=== PATIENT | male | born 1995 | race Caucasian/White ===

== ENCOUNTER 2019-06-06 20:56 | Emergency (ER) | payer BC ==
[2019-06-06] MEDS ORDERED: HYDROmorphone 1 MG/ML Syringe IM ONE (21:39)
--- NOTE | 2019-06-06 22:12 | EDM.PDOC ---
ED HPI GENERAL MEDICAL PROBLEM - General Chief Complaint: Upper Extremity Injury/Pain Stated Complaint: LEFT SHOULDER POSSIBLY DISLOCATED FELL Time Seen by Provider: 06/06/19 21:33 Source of Information: Reports: Patient, RN Notes Reviewed History Limitations: Reports: No Limitations - History of Present Illness INITIAL COMMENTS - FREE TEXT/NARRATIVE: Patient is a 23-year-old male who presents to the ED for the evaluation of a left shoulder injury. Patient states he was working on a trailer, 1 hour prior to arrival to the ER, when he fell through the floor of the trailer. He states that he tried to brace himself against the wall with his left arm, but ended up injuring his left shoulder. He has had very limited range of movement after this, and states there is a lot of pain with any sort of movement of his shoulder. He is able to move his elbow, and wiggle his fingers without much difficulty. He is not having any numbness or tingling at this time. Pulses are strong distally to the injury. He did not hit his head nor is he complaining of any other injuries. Patient states that he did eat supper tonight, roughly around 8:30PM. There is no obvious deformity appreciated on exam, however patient's body habitus makes it hard to appreciate. Left Shoulder Pain Score (Numeric/FACES): 10 - Related Data Allergies Allergy/AdvReac Type Severity Reaction Status Date / Time cephalexin [From Keflex] Allergy Rash Verified 06/06/19 21:12 Home Meds: Home Meds . [No Known Home Meds] 06/06/19 [History] Past Medical History - Past Health History Medical/Surgical History: Denies Medical/Surgical History Social & Family History - Tobacco Use Smoking Status *Q: Current Every Day Smoker Years of Tobacco use: 4 Packs/Tins Daily: 0.5 - Caffeine Use Caffeine Use: Reports: None - Recreational Drug Use Recreational Drug Use: No Review of Systems - Review of Systems Review Of Systems: Comprehensive ROS is negative, except as noted in HPI. ED EXAM, GENERAL - Physical Exam Exam: See Below Exam Limited By: No Limitations General Appearance: Alert, WD/WN, No Apparent Distress Eye Exam: Bilateral Eye: EOMI, Normal Inspection, PERRL Ears: Normal External Exam, Normal Canal, Hearing Grossly Normal, Normal TMs Nose: Normal Inspection Throat/Mouth: Normal Inspection, Normal Lips, Normal Teeth, Normal Gums, Normal Oropharynx, Normal Voice, No Airway Compromise Head: Atraumatic, Normocephalic Neck: Normal Inspection Respiratory/Chest: No Respiratory Distress, Lungs Clear, Normal Breath Sounds, No Accessory Muscle Use, Chest Non-Tender Cardiovascular: Normal Peripheral Pulses, Regular Rate, Rhythm, No Murmur Peripheral Pulses: 3+: Radial (L), Radial (R) GI/Abdominal: Normal Bowel Sounds, Soft, Non-Tender, No Distention, No Mass Extremities: Normal Inspection, Normal Capillary Refill, Limited Range of Motion (Of the left shoulder, patient states he is not able to move this much at all. He is having quite a bit of pain on examination and is not able to move the arm much at all, he is very hesitant to let me move the arm much at all. He is able to move his fingers in all range of motion, and is able to move at his elbow.) Neurological: Alert, Oriented, Normal Cognition, No Motor/Sensory Deficits Psychiatric: Normal Affect, Normal Mood Skin Exam: Warm, Dry, Intact, Normal Color, No Rash ED TRAUMA EXTREMITY PROCEDURES - Joint Reduction Left Shoulder Sedation: Conscious Sedation, Other (intubation) Pre-Procedure NV Status: Normal Post-Procedure NV Status: Normal Technique: Traction/Counter Traction Post-Reduction Imaging: Completely Reduced Joint Reduction Complications: No Joint Reduction Complication Description: Patient did eat prior to arrival to the ER, at 8:30 PM. BUS MECHANIC on-call is intubating the patient for airway protection at this time, patient will have conscious sedation otherwise for shoulder reduction purposes. Course - Vital Signs Last Recorded V/S: Last Vital Signs Temp 98 F 06/06/19 21:09 Pulse 90 06/06/19 21:09 Resp 16 06/06/19 21:09 BP 174/100 H 06/06/19 21:09 Pulse Ox 97 06/06/19 21:09 - Orders/Labs/Meds Orders: Active Orders 24 hr Category Date Time Status Peripheral IV Care [RC] . DIRECTED Care 06/06/19 22:53 Ordered Shoulder Comp Lt [CR] Stat Exams 06/06/19 21:33 Ordered Shoulder Comp Lt [CR] Stat Exams 06/06/19 23:45 Ordered Sodium Chloride 0.9% [Saline Flush] Med 06/06/19 22:53 Active 10 ml FLUSH ASDIRECTED PRN DME for Discharge [COMM] Routine Oth 06/06/19 23:05 Ordered Peripheral IV Insertion Adult [OM.PC] Stat Oth 06/06/19 22:53 Ordered Medication Orders Sodium Chloride (Saline Flush) 10 ml FLUSH ASDIRECTED PRN PRN Reason: Keep Vein Open Last Admin: 06/06/19 23:22 Dose: 10 ml Meds: Medications Generic Name Dose Route Start Last Admin Trade Name Freq PRN Reason Stop Dose Admin Sodium Chloride 10 ml 06/06/19 22:53 06/06/19 23:22 Saline Flush FLUSH 10 ml ASDIRECTED PRN Administration Keep Vein Open Discontinued Medications Generic Name Dose Route Start Last Admin Trade Name Freq PRN Reason Stop Dose Admin Fentanyl Confirm 06/06/19 23:05 Sublimaze Administered 06/06/19 23:06 Dose 100 mcg .ROUTE .STK-MED ONE Hydromorphone HCl 1 mg 06/06/19 21:39 06/06/19 21:45 Dilaudid IM 06/06/19 21:40 1 mg ONETIME ONE Administration Hydromorphone HCl 5 mg 06/06/19 22:52 06/06/19 23:22 Dilaudid IVPUSH 06/06/19 22:53 Not Given ONETIME ONE Lidocaine HCl Confirm 06/06/19 23:06 Xylocaine-Mpf 1% Administered 06/06/19 23:07 Dose 4 mls @ as directed .ROUTE .STK-MED ONE Lactated Ringer's Confirm 06/06/19 23:08 Ringers, Lactated Administered 06/06/19 23:09 Dose 1,000 mls @ as directed .ROUTE .STK-MED ONE Midazolam HCl 5 mg 06/06/19 22:51 06/06/19 23:22 Versed 1 Mg/Ml IVPUSH 06/06/19 22:52 Not Given ONETIME ONE Midazolam HCl Confirm 06/06/19 22:56 06/06/19 23:22 Versed 1 Mg/Ml Administered 06/06/19 22:57 Not Given Dose 6 mg .ROUTE .STK-MED ONE Midazolam HCl Confirm 06/06/19 23:05 Versed 1 Mg/Ml Administered 06/06/19 23:06 Dose 2 mg .ROUTE .STK-MED ONE Midazolam HCl Confirm 06/06/19 23:25 Versed 1 Mg/Ml Administered 06/06/19 23:26 Dose 2 mg .ROUTE .STK-MED ONE Propofol Confirm 06/06/19 23:05 Diprivan 20 Ml Administered 06/06/19 23:06 Dose 200 mg .ROUTE .STK-MED ONE Propofol Confirm 06/06/19 23:06 Diprivan 20 Ml Administered 06/06/19 23:07 Dose 200 mg .ROUTE .STK-MED ONE Propofol Confirm 06/06/19 23:28 Diprivan 20 Ml Administered 06/06/19 23:29 Dose 200 mg .ROUTE .STK-MED ONE - Re-Assessments/Exams Free Text/Narrative Re-Assessment/Exam: 06/06/19 22:10 Patient presents to the ED for evaluation of a left shoulder injury. Did get x- rays at time of triage, the patient did receive 1 mg of IM Dilaudid for further pain management as he states it was pretty painful when he got to the ER. The shoulder x-ray demonstrates an anterior dislocation, confirmed by myself and Dr. Rudolph. Official radiology read is pending however. At this time we will have BUS MECHANIC come in for conscious sedation, and try to put the patient's shoulder back in. We do not have Ortho coverage on at today's visit. Dr. Rudolph will help assist with the shoulder reduction. 06/06/19 22:45 Silvio Ramirez CRNA was into consult with the patient, and he is recommending waiting until at least 2:30 AM to put the shoulder back in place due to the patient eating at 8:30 PM. He says ideally he would like to try to wait till 4: 30 AM. I did discuss this with Dr. Rudolph at this time, and he states that we should go forward with the shoulder reduction at this time is is an emergent situation and not an elective surgery. 06/06/19 23:08 Silvio Ramirez CRNA will assist with the reduction but recommends intubating the patient for protecting the patient's airway. This was discussed with the patient and he is okay with this line of treatment at this time. Plan is to get the shoulder reduced, send the patient home with a few tablets of pain medication, and have him follow-up with Ortho in a week or so for reevaluation and to make sure he does not need any sort of shoulder instability surgery. 06/06/19 23:41 Shoulder reduction was successful, performed by myself with Dr. Rudolph on countertraction. Postreduction films do appear to show a joint that is properly in place. No obvious fracture or Hill-Sachs deformity noted on postreduction films by Dr. Rudolph or myself. Official radiology read is pending. Patient will be discharged home after he wakes up from the conscious sedation procedure, with the above plan. Departure - Departure Time of Disposition: 23:11 Disposition: Home, Self-Care 01 Condition: Fair Clinical Impression: Dislocation of left shoulder joint Qualifiers: Encounter type: initial encounter Qualified Code(s): S43.005A - Unspecified dislocation of left shoulder joint, initial encounter - Discharge Information *PRESCRIPTION DRUG MONITORING PROGRAM REVIEWED*: No *COPY OF PRESCRIPTION DRUG MONITORING REPORT IN PATIENT KAROL: No Instructions: How to Use a Shoulder Immobilizer, Shoulder Dislocation, Easy-to- Read Referrals: Truman Marquis MD [Physician] - 1 Week Forms: ED Department Discharge, ED Return to Work/School Form Additional Instructions: You have been evaluated in the ED for your left shoulder injury. Your x-ray demonstrated that you did have an anterior dislocation of your left shoulder, this was successfully reduced in the ED tonight. Please use ice as tolerated to the affected area. You were given a sling, for immobilization of the joint, please keep this in place for the next day or so, you may want to try to do some light range of motion shoulder exercises to help prevent frozen shoulder due to immobilization of the shoulder joint during this time. You may take Tylenol 500 mg or ibuprofen 600mg q6 hrs for pain relief. Please do so until you have a tolerable level of pain with activity. Do not exceed 4000mg Tylenol or 3200mg ibuprofen in a 24 hour time period. You were given a prescription for a strong pain medication, hydrocodone/ acetaminophen 5/325, please take 1 tab every 6 hours as needed for pain not relieved by Tylenol or ibuprofen alone. Please note this medication does contain Tylenol in it, so do not take more than 4000 mg in a 24-hour time span. These medications can be addictive, so please take as few as possible to achieve adequate pain control. These meds can also be quite constipating, recommend that you increase your oral fluid intake and take a stool softener like MiraLAX while taking these medications. Do not drive while taking this medication. Recommend you follow-up with orthopedics, our orthopedic surgeon, Dr. Marquis's office number is [phone], please call there tomorrow morning and schedule an appointment with him for re-evaluation, sometime this week if possible or early next week. Please return to ED if your symptoms should change or worsen. Sepsis Event Note - Evaluation Sepsis Screening Result: No Definite Risk - Focused Exam Vital Signs: Vital Signs Temp Pulse Resp BP Pulse Ox 06/06/19 21:09 98 F 90 16 174/100 H 97 Date Exam was Performed: 06/06/19 Time Exam was Performed: 23:53 - My Orders Last 24 Hours: My Active Orders 06/06/19 21:33 Shoulder Comp Lt [CR] Stat 06/06/19 22:53 Peripheral IV Care [RC] . DIRECTED Sodium Chloride 0.9% [Saline Flush] 10 ml FLUSH ASDIRECTED PRN Peripheral IV Insertion Adult [OM.PC] Stat 06/06/19 23:05 DME for Discharge [COMM] Routine 06/06/19 23:45 Shoulder Comp Lt [CR] Stat - Assessment/Plan Last 24 Hours: My Active Orders 06/06/19 21:33 Shoulder Comp Lt [CR] Stat 06/06/19 22:53 Peripheral IV Care [RC] . DIRECTED Sodium Chloride 0.9% [Saline Flush] 10 ml FLUSH ASDIRECTED PRN Peripheral IV Insertion Adult [OM.PC] Stat 06/06/19 23:05 DME for Discharge [COMM] Routine 06/06/19 23:45 Shoulder Comp Lt [CR] Stat
[2019-06-06] MEDS ORDERED: Midazolam 1 MG/ML 5 ML SDV IVPUSH ONE (22:51)
[2019-06-06] MEDS ORDERED: HYDROmorphone 1 MG/ML Syringe IVPUSH ONE (22:52)
--- NOTE | 2019-06-06 22:52 | PCM.PREANE ---
Preanesthetic Assessment - Procedure Proposed Procedure: closed reduction of left shoulder - Anesthesia/Transfusion/Family Hx Anesthesia History: No Prior Anesthesia Family History of Anesthesia Reaction: No Transfusion History: No Prior Transfusion(s) - Review of Systems General: No Symptoms Pulmonary: No Symptoms Cardiovascular: No Symptoms Gastrointestinal: No Symptoms Neurological: Tingling (left arm) Other: Reports: None - Physical Assessment NPO Status Date: 06/06/19 NPO Status Time: 21:30 Vital Signs: Last Vital Signs Temp 36.6 C 06/06/19 21:09 Pulse 90 06/06/19 21:09 Resp 16 06/06/19 21:09 BP 174/100 H 06/06/19 21:09 Pulse Ox 97 06/06/19 21:09 Height: 1.75 m Weight: 122.47 kg ASA Class: 2 Mental Status: Alert & Oriented x3 Airway Class: Mallampati = 1 Dentition: Reports: Normal Dentition Thyro-Mental Finger Breadths: 3 Mouth Opening Finger Breadths: 3 ROM/Head Extension: Limited/Partial (painful when rotate to right) Lungs: Clear to Auscultation, Normal Respiratory Effort Cardiovascular: Regular Rate, Regular Rhythm - Allergies Allergies/Adverse Reactions: Allergies Allergy/AdvReac Type Severity Reaction Status Date / Time cephalexin [From Keflex] Allergy Rash Verified 06/06/19 21:12 - Blood Blood Available: No Product(s) Available: None - Anesthesia Plan Pre-Op Medication Ordered: None - Acknowledgements Anesthesia Type Planned: MAC Pt an Appropriate Candidate for the Planned Anesthesia: Yes Alternatives and Risks of Anesthesia Discussed w Pt/Guardian: Yes Pt/Guardian Understands and Agrees with Anesthesia Plan: Yes PreAnesthesia Questionnaire - Past Health History Medical/Surgical History: Denies Medical/Surgical History - SUBSTANCE USE Smoking Status *Q: Current Every Day Smoker Tobacco Use Within Last Twelve Months: Cigarettes Second Hand Smoke Exposure: Yes Days Per Week of Alcohol Use: 0 Number of Drinks Per Day: 0 Total Drinks Per Week: 0 Recreational Drug Use History: No - HOME MEDS Home Medications: Home Meds . [No Known Home Meds] 06/06/19 [History] - CURRENT (IN HOUSE) MEDS Current Meds: Current Medications Discontinued Medications Hydromorphone HCl (Dilaudid) 1 mg IM ONETIME ONE Stop: 06/06/19 21:40 Last Admin: 06/06/19 21:45 Dose: 1 mg
[2019-06-06] MEDS ORDERED: Sodium Chloride 0.9% 10 ML Syringe FLUSH PRN (22:53)
[2019-06-06] MEDS ORDERED: Midazolam 1 MG/ML 2 ML SDV ONE ×3 (22:56→23:25)
[2019-06-06] MEDS ORDERED: fentaNYL 100 MCG/2 ML SDV ONE (23:05)
[2019-06-06] MEDS ORDERED: Propofol 200 MG/20 ML SDV ONE ×3 (23:05→23:28)
[2019-06-06] MEDS ORDERED: Succinylcholine/Sod PF 100 MG/5 ML SYRINGE IV ONE (23:06)
[2019-06-06] MEDS ORDERED: Lidocaine 1% 4 ML ONE (23:06)
[2019-06-06] MEDS ORDERED: Lactated Ringers 1,000 ML ONE (23:08)
--- NOTE | 2019-06-07 00:05 | PCM48HPAN ---
Post Anesthesia Note - EVALUATION WITHIN 48HRS OF ANESTHETIC Vital Signs in Normal Range: Yes Patient Participated in Evaluation: Yes Respiratory Function Stable: Yes Airway Patent: Yes Cardiovascular Function Stable: Yes Hydration Status Stable: Yes Pain Control Satisfactory: Yes Nausea and Vomiting Control Satisfactory: Yes Mental Status Recovered: Yes Vital Signs: Last Vital Signs Temp 36.6 C 06/06/19 21:09 Pulse 90 06/06/19 21:09 Resp 16 06/06/19 21:09 BP 174/100 H 06/06/19 21:09 Pulse Ox 97 06/06/19 21:09 - COMMENTS/OBSERVATIONS Free Text/Narrative:: no anesthesia complications noted
--- NOTE | 2019-06-07 06:58 | CR ---
Left shoulder: Three views of the left shoulder were obtained. Comparison: No prior shoulder exam. Anterior subcoracoid dislocation is seen. Acromioclavicular joint appears within normal limits. No discrete fracture or other abnormality is identified. Impression: 1. Dislocated left shoulder. Diagnostic code #3 This report was dictated in [place] Standard Time
--- NOTE | 2019-06-07 06:58 | CR ---
Left shoulder: Two views of the left shoulder were obtained. Comparison: Prior shoulder study performed earlier on the same day (9:46 PM). Previous dislocation shows evidence of reduction. No discrete fracture or other abnormality is appreciated. Impression: 1. Previous dislocation has been reduced. 2. No additional abnormality is appreciated. Diagnostic code #1 This report was dictated in [place] Standard Time
== END 2019-06-07 00:50 | disposition home or self-care (01) ==
LOC: JD.ED 20:56
DX: S43.005A Unspecified dislocation of left shoulder joint, initial encounter (principal); F17.210 Nicotine dependence, cigarettes, uncomplicated; Z88.1 Allergy status to other antibiotic agents; W17.89XA Other fall from one level to another, initial encounter
CPT/HCPCS: 23650; 31500; 73030; 96372; 99152; 99153; 99283; J0330; J1170; J2001; J2250; J2704; J3010; J7120; 01620; 23655